=== PATIENT | female | born 1955 | race Caucasian/White ===

== ENCOUNTER 2020-08-29 08:55 | Outpatient (REF) | payer OTHER, SELFPAY | END 2020-08-29 08:56 | disposition home or self-care (01) | LOC: HO.LAB 08:55 | PROVIDERS: Visit Provider Internal Medicine | DX: Z20.828 Contact with and (suspected) exposure to other viral communicable diseases (principal) | CPT/HCPCS: C9803; U0003 ==

== ENCOUNTER 2021-03-09 19:01 | Inpatient (IN) | payer OTHER, SELFPAY ==
--- NOTE | ~2021-03-09 | XR_ITS ---
EXAMINATION: XR CHEST CLINICAL INFORMATION: Shortness of breath. COMPARISON: 12/25/2013 TECHNIQUE: AP portable upright view of the chest FINDINGS: Mild bronchial wall thickening is suspected in the perihilar regions. No consolidation, pneumothorax, or pleural effusion. Cardiac and mediastinal contours are normal. Pulmonary vasculature is unremarkable. Osseous structures are unremarkable. XR/XR chest 1V IMPRESSION: Bronchial wall thickening can be seen with a small airways process such as asthma or atypical/viral infection.
[2021-03-09 19:03] VITALS: BP 176/83; PULSE 62; RESP 18; TEMP 36.8; O2SAT 92; BMI 35.4
--- NOTE | 2021-03-09 21:47 | ED.SOB ---
HPI - SOB/Dyspnea General Chief Complaint: Dyspnea Stated Complaint: diff breathing Time Seen by Provider: 03/09/21 21:47 Source: patient Mode of arrival: ambulatory Limitations: no limitations History of Present Illness HPI Narrative: patient with history of COPD ex-smoker using inhaler at home 2 days ago was cleaning house chemicals started having increased shortness of breath seen at urgent care center yesterday chest x-ray was done which was negative started on prednisone 50 mg daily which she been taking along with inhaler came here as she is not getting better when she came she was wheezing and saturating 89% at room air feels chest tight no history of heart failure no history of coronary artery disease Related Data Home Medications Medication Instructions Recorded Confirmed [id number] 1 puff INHALATION DAILY 03/10/21 03/10/21 [Trelegy Ellipta] lisinopril 1 tab PO DAILY 03/10/21 03/10/21 metoprolol succinate 1 tab PO DAILY 03/10/21 03/10/21 prednisone 1 tab PO DAILY 03/10/21 03/10/21 rosuvastatin 1 tab PO DAILY 03/10/21 03/10/21 Allergies Allergy/AdvReac Type Severity Reaction Status Date / Time Sulfa (Sulfonamide Allergy Intermediate Hives Verified 03/09/21 19:02 Antibiotics) [SULFA (SULFONAMIDE ANTIBIOTICS)] Review of Systems Review of Systems: Constitutional : No Weight loss, No Fever, No Chills ENT/Mouth : No sore throat, No Rhinorrhea Eyes: No Eye Pain, No Swelling Cardiovascular : No Chest Pain, no palpitations Respiratory : No Cough, No Sputum, + shortness of breath Gastrointestinal : no Nausea, No Vomiting, No Diarrhea, No abdominal Pain, no black stools Genitourinary : No Dysuria, No Urinary Frequency Musculoskeletal : No joint pain, No Myalgias, No Joint Swelling Skin : No Skin Lesions, No rash Neuro : No Weakness, No Numbness, No Dizziness, No Headache Psych : No Anxiety/Panic, No Depression Heme/Lymph: No Bruising, No Lymphadenopathy Endocrine : No Polyuria, No Polydipsia All other systems reviewed and are negative PMFSH Past Medical History Medical History COPD (chronic obstructive pulmonary disease) Gall stones HTN (hypertension) Kidney stones Surgical History H/O: hysterectomy Hx of appendectomy Social History Social History Alcohol intake: current Patient Tobacco Use Status: Current everyday Tobacco user Use of substances other than those prescribed or required for medical reasons: No Advance Directives: No Advance Directives Information Provided: Yes Patient : No Physical Exam Vital Signs: Vital Signs: Last Vital Signs Temp 98.2 F 03/10/21 00:00 Pulse 66 03/10/21 04:27 Resp 15 03/10/21 04:27 BP 112/50 L 03/10/21 04:27 Pulse Ox 93 03/10/21 04:27 Oxygen Flow Rate 2 03/09/21 19:03 Body Mass Index 35.4 Appearance: Alert. Oriented X3. in moderate distress with frequent dry cough Eyes: PERRLA, No Nystagmus ENT: Pharynx normal. Oral Mucosa moist Neck: Normal inspection. Neck supple. CVS: Normal heart rate and rhythm. Pulses normal. Respiratory: moderate respiratory distress. Equal air entry bilateral, bilateral wheezing/rhonchi , no rales Abdomen: Soft and nontender. Bowel sounds are present, no mass palpable, no CVA tenderness Skin: Skin warm and dry. Normal skin color. Normal skin turgor. Extremities: No lower extremity edema. No calf tenderness Neuro: Oriented X 3. No motor deficit. No sensory deficit.No cerebellar signs , cranial nerves II-XII intact MDM - SOB/Dyspnea MDM Narrative Medical decision making narrative: patient with COPD with pulse ox dropping to 88% at room air after nebulizing treatment in the ER chest x-ray negative for infiltrate will admit patient for COPD exacerbation patient white counts are elevated secondary to prednisone use patient is not septic and has chronic bronchitis as a cause of COPD Differential Diagnosis Differential diagnosis: Likely acute exacerbation of chronic obstructive airways disease Lab Data Attestation: I reviewed the patient's lab results. Result diagrams: 03/09/21 22:24 03/09/21 22:24 Labs: Lab Results 03/09/21 03/09/21 Range/Units 22:24 22:24 WBC 15.2 H (4.8-10.8) X10*3/uL RBC 5.26 (4.20-5.50) X10*6/uL Hgb 16.3 H (12.0-16.0) g/dl Hct 49.4 H (37-47) % MCV 93.9 (80-98) fL MCH 31.0 (27.0-33.0) pg MCHC 33.0 (31.0-35.0) g/dl RDW 13.2 (11.0-16.0) % Plt Count 247 (160-400) X10*3/uL MPV 12.2 (9.4-12.3) fL Immature Gran % (Auto) 0.3 (0.0-0.4) % Neut % (Auto) 81.3 H (45-73) % Lymph % (Auto) 10.2 L (20-40) % Dillon % (Auto) 8.0 (2-11) % Eos % (Auto) 0.1 (0-4) % Baso % (Auto) 0.1 (0-2) % Lymph # (Auto) 1.6 (1.2-4.9) X10*3/uL Dillon # (Auto) 1.2 (0.1-1.2) X10*3/uL Eos # (Auto) 0.0 (0.0-0.4) X10*3/uL Baso # (Auto) 0.0 (0.0-0.2) X10*3/uL Abs Immat Gran (auto) 0.05 H (0.00-0.03) X10*3/uL Absolute Neuts (auto) 12.3 H (2.0-8.3) X10*3/uL Absolute Nucleated RBC 0.000 (0.0-0.012) X10*3/uL Nucleated RBC % (auto) 0.0 (0.0-0.2) /100WBC Sodium 144 (135-145) mmol/L Potassium 4.5 (3.3-5.1) mmol/L Chloride 108 (96-108) mmol/L Carbon Dioxide 27 (22-29) mmol/L Anion Gap 14 (12-20) BUN 10 (9-16) mg/dL Creatinine 0.84 (0.5-1.4) mg/dL Estim Creat Clear Calc 73.3 Estimated GFR > 60 Random Glucose 110 (60-115) mg/dL Calcium 10.0 (8.4-10.2) mg/dL Discharge Plan Discharge Clinical Impression: Acute exacerbation of chronic obstructive airways disease Patient Disposition: Admitted As Inpatient
[2021-03-09 21:54] VITALS: BP 135/62; PULSE 57; RESP 18; O2SAT 93
[2021-03-09] MEDS: dexAMETHasone sod phosphate 10 MG/ML VIAL IVPUSH (22:24)
[2021-03-09 22:29] LABS: Basophils Percent Auto 0.1 % (0-2); Eosinophils Percent Auto 0.1 % (0-4); Hematocrit 49.4 % (37-47); Hemoglobin 16.3 g/dl (12.0-16.0); Imm Gran Abs Auto 0.05 X10*3/uL (0.00-0.03); Imm Gran Pct Auto 0.3 % (0.0-0.4); Lymphocytes Absolute Auto 1.6 X10*3/uL (1.2-4.9); Lymphocytes Percent Auto 10.2 % (20-40); MANUAL DIFF FLAG NO; Mean Corpuscular Volume 93.9 fL (80-98); Mean Platelet Volume 12.2 fL (9.4-12.3); Monocytes Absolute Auto 1.2 X10*3/uL (0.1-1.2); Neutrophils Absolute Auto 12.3 X10*3/uL (2.0-8.3); Neutrophils Percent Auto 81.3 % (45-73); Platelet Count 247 X10*3/uL (160-400); Red Blood Count 5.26 X10*6/uL (4.20-5.50); Red Cell Distribution Width 13.2 % (11.0-16.0); White Blood Count 15.2 X10*3/uL (4.8-10.8)
[2021-03-09 22:51] LABS: Anion Gap 14 (12-20); Blood Urea Nitrogen 10 mg/dL (9-16); Carbon Dioxide 27 mmol/L (22-29); Chloride 108 mmol/L (96-108); Creatinine Clr Calc Pharmacy 73.3; Estimated Glomerular Filt Rate > 60; Glucose Random 110 mg/dL (60-115); Potassium 4.5 mmol/L (3.3-5.1); Sodium 144 mmol/L (135-145)
[2021-03-09] MEDS: Albuterol Sulfate (0.083%) 2.5 MG/3 ML VIAL.NEB 5 MG INHALE (23:07)
[2021-03-09] MEDS: Albuterol/Iprat 2.5/0.5MG 3 ML AMPUL.NEB INHALE (23:07)
[2021-03-09 23:10] VITALS: PULSE 52; O2SAT 94
[2021-03-10] VITALS (14 sets, daily range): BP systolic 109–155; BP diastolic 45–74; PULSE 56–77; RESP 14–20; TEMP 35.8–36.8; O2SAT 93–98
[2021-03-10] MEDS: Acetaminophen 325 MG TABLET 650 MG PO (00:59)
[2021-03-10] MEDS: Acetaminophen 325 MG TABLET PO (01:00)
[2021-03-10 03:15] LABS: COVID-19 Test Negative (Negative)
--- NOTE | 2021-03-10 05:02 | P.HPHOSP_ITS ---
History of Present Illness Date of Service: 03/10/21 Chief Complaint: shortness of breath this is a 65-year-old female with past medical history a stone who presents to the hospital with complaints of shortness of breath. Patient reports that her symptoms started about 2 days ago, has a cough, sputum production, no fever no chills, she has chest soreness from coughing, denies any fever or chills, denies abdominal pain nausea vomiting, diarrhea or constipation. No urinary symptoms and no lower extremity edema. No headache or change in vision. No palpitations. on arrival to the ED patient was noted to be 88-89% on room air, currently on 2 L of oxygen satting 93% Labs are significant for WBC count of 15.4, hemoglobin 16.3, otherwise unremarkable. COVID-19 negative Chest x-ray showed bronchial wall thickening can be seen with asthma airway process such as asthma or atypical/viral infection review of systems other in eyes negative, past medical history as below in confirmed with patient Review of Systems Review of Systems: Yes all other systems are reviewed and are negative [facility] Medical History COPD (chronic obstructive pulmonary disease) Gall stones HTN (hypertension) Kidney stones Surgical History H/O: hysterectomy Hx of appendectomy Social History Alcohol intake: current Patient Tobacco Use Status: Current everyday Tobacco user Use of substances other than those prescribed or required for medical reasons: No Advance Directives: No Advance Directives Information Provided: Yes Patient : No Meds Allergies Allergy/AdvReac Type Severity Reaction Status Date / Time Sulfa (Sulfonamide Allergy Intermediate Hives Verified 03/09/21 19:02 Antibiotics) [SULFA (SULFONAMIDE ANTIBIOTICS)] Active Medications: Current Medications Generic Name Dose Route Start Last Admin Trade Name Freq PRN Reason Stop Dose Admin Acetaminophen 650 mg 03/10/21 04:27 Acetaminophen 325 Mg Tablet PO Q6H PRN Pain, Mild (Pain Scale 1-3) Albuterol/Ipratropium 3 ml 03/10/21 08:00 Albuterol/Iprat 2.5/0.5mg 3 Ml Ampul.Neb INHALE RQ4H WHILE AWAKE PAULINO Albuterol/Ipratropium 3 ml 03/10/21 04:27 Albuterol/Iprat 2.5/0.5mg 3 Ml Ampul.Neb INHALE RQ4H PRN Shortness of Breath/Wheezing Docusate Sodium 100 mg 03/10/21 04:27 Docusate Sodium 100 Mg Capsule PO DAILY PRN Constipation Enoxaparin Sodium 40 mg 03/10/21 06:00 Enoxaparin Sodium 40 Mg/0.4 Ml Syringe SUBCUT Q24H [facility] Ceftriaxone Sodium 1 gm/ 50 mls @ 100 mls/hr 03/10/21 06:00 Sodium Chloride IV Q24H [facility] Azithromycin 500 mg/ Sodium 250 mls @ 125 mls/hr 03/10/21 07:00 Chloride IV Q24H [facility] Methylprednisolone Sodium Succinate 40 mg 03/10/21 09:00 Methylprednisolone Sod Succ 40 Mg/Ml Vial IVPUSH Q12H [facility] Ondansetron HCl 4 mg 03/10/21 04:27 Ondansetron Hcl 4 Mg/2 Ml Vial IVPUSH Q8H PRN Nausea and Vomiting Sodium Chloride 3 ml 03/10/21 08:00 0.9 % Sodium Chloride Flush 3 Ml Syringe IVFLUSH QSHIFT [facility] Home Medications Medication Instructions Recorded Confirmed Last Taken Type whothojjbwu-mjcjiwftx-uliofbfs 1 puff INHALATION DAILY 03/10/21 03/10/21 03/10/21 History [Trelegy Ellipta] lisinopril 1 tab PO DAILY 03/10/21 03/10/21 03/10/21 History metoprolol succinate 1 tab PO DAILY 03/10/21 03/10/21 03/10/21 History prednisone 1 tab PO DAILY 03/10/21 03/10/21 03/10/21 History rosuvastatin 1 tab PO DAILY 03/10/21 03/10/21 03/10/21 History Physical Exam Vital Signs and Narrative: Vital Signs: Last Vital Signs Temp 98.2 F 03/10/21 00:00 Pulse 66 03/10/21 04:27 Resp 15 03/10/21 04:27 BP 112/50 L 03/10/21 04:27 Pulse Ox 93 03/10/21 04:27 Oxygen Flow Rate 2 03/09/21 19:03 Body Mass Index 35.4 Const: General: cooperative and no acute distress Orientation/consciousness: patient oriented x3 Eyes: General: appearance normal, both eyes and all related structures Resp: Other: audible wheezing Effort & Inspection: normal respiratory effort and able to speak in complete sentences Cardio: Rate: regular rate Rhythm: regular rhythm GI: Palpation (GI): Soft to palpation Auscultation: normal bowel sounds Skin: General skin exam: no rashes or lesions noted Neuro: General: patient oriented x3 Cognition (Neuro): normal cognition Extrem: General: Yes normal to inspection and Yes no pedal edema Results Labs CBC and Chem 7: 03/09/21 22:24 03/09/21 22:24 Labs: Laboratory Results - last 24 hr 03/09/21 03/09/21 03/10/21 22:24 22:24 02:46 MCV 93.9 MCH 31.0 MCHC 33.0 RDW 13.2 Plt Count 247 MPV 12.2 Immature Gran % (Auto) 0.3 Neut % (Auto) 81.3 H Lymph % (Auto) 10.2 L Owsley % (Auto) 8.0 Eos % (Auto) 0.1 Baso % (Auto) 0.1 Lymph # (Auto) 1.6 [place] # (Auto) 1.2 Eos # (Auto) 0.0 Baso # (Auto) 0.0 Abs Immat Gran (auto) 0.05 H Absolute Neuts (auto) 12.3 H Absolute Nucleated RBC 0.000 Nucleated RBC % (auto) 0.0 Anion Gap 14 Estim Creat Clear Calc 73.3 Estimated GFR > 60 Random Glucose 110 Calcium 10.0 COVID-19 ([facility]NARD) Negative COVID-19 Clin Com See Note Imaging Radiologist's Impressions: Impressions Chest X-Ray 03/10/21 01:01 IMPRESSION: Bronchial wall thickening can be seen with a small airways process such as asthma or atypical/viral infection. Assessment and Plan (1) Acute exacerbation of chronic obstructive airways disease: Status: Acute (2) Acute respiratory failure with hypoxia: Status: Acute (3) Shortness of breath: Status: Acute (4) Pneumonia: Status: Acute this is a 65-year-old female with past medical history of COPD who presents to the hospital shortness of breath cough and sputum production found to be hypoxic # acute hypoxic respiratory failure - most likely secondary to COPD, as well as likely pneumonia, less likely to be secondary to CHF exacerbation - has cough, sputum production, as well as dyspnea, has slightly elevated WBC count, afebrile - chest x-ray shows possible airway disease - will treat her with IV steroids, antibiotics, breathing treatments - titrate oxygen off as tolerated - order BNP # acute CHF exacerbation - dyspnea, cough, sputum production - history of COPD - hypoxic - at this time will treat with IV steroids 40 of Solu-Medrol IV b.i.d., antibiotics, DuoNeb p.r.n. as well as scheduled # pneumonia - patient has leukocytosis, as well as evidence of possible atypical pneumonia on chest x-ray - will treat her with ceftriaxone and azithromycin - follow cultures # hypertension - continue lisinopril, metoprolol # hyperlipidemia - continue statin DVT prophylaxis : Lovenox Quality Stroke Does the patient have a stroke diagnosis?: No VTE Prior VTE?: No VTE Risk Level:: Medical - moderate - high VTE Device Contraindication: Treatment Not Indicated VTE Drug Contraindication: N/A - Med Ordered
[2021-03-10] MEDS: cefTRIAXone sodium 1 GM in 0.9 % Sodium Chloride 50 ML IV (06:17)
[2021-03-10] MEDS: Enoxaparin Sodium 40 MG/0.4 ML SYRINGE SUBCUT (06:23)
[2021-03-10 06:44] LABS: B Type Natriuretic Peptide 66 pg/mL (<100)
--- NOTE | 2021-03-10 07:00 | PC.NURSE ---
Patient is sittng up in bed looking around. Bilateral breath sounds are equal but wheezing is noted throughout. Pt denies any pain and states she feels better than when she arrived.
[2021-03-10] MEDS: Azithromycin 500 MG in 0.9 % Sodium Chloride 250 ML 125 MG IV (07:55)
[2021-03-10] MEDS: 0.9 % Sodium Chloride Flush 3 ML SYRINGE IVFLUSH ×2 (08:00→17:47)
--- NOTE | 2021-03-10 08:02 | PC.NURSE ---
Patient finished eating breakfast. Pt is alert and oriented. Pt states she is not in any pain.
[2021-03-10] MEDS: Albuterol/Iprat 2.5/0.5MG 3 ML AMPUL.NEB INHALE ×4 (08:15→19:50)
--- NOTE | 2021-03-10 09:53 | PC.NURSE ---
Patient ambulatory to the bathroom and back unassisted. Pt continues to have expiratory wheezing but states she is feeling much better. No acute distress at this time
[2021-03-10] MEDS: methylPREDNISolone Sod Succ 40 MG/ML VIAL IVPUSH ×2 (10:12→21:18)
--- NOTE | 2021-03-10 11:07 | MHC.CM.PN ---
Met with patient and Erick in regards to discharge planning. Patient lives with her , ambulates independently and had no services prior to coming to the hospital. No services anticipated to be necessary because [facility] is not homebound. PCP verified. Patient has a HCP at home. Patient received 2nd Pfizer vaccine on 11/13. Erick will transport patient home when medically stable. Continue to monitor for d/c needs.
--- NOTE | 2021-03-10 15:00 | PC.NURSE ---
Pt has ambulated to the bathroom and back unassisted. Pt continues to have intermittent coughing. Pt denies pain but states her chest is sore from coughing. Pt remains alert and oriented
--- NOTE | 2021-03-10 17:20 | PC.NURSE ---
Report given to LAURI Scott. Pt to go to room 362
[2021-03-11] MEDS: 0.9 % Sodium Chloride Flush 3 ML SYRINGE IVFLUSH ×2 (00:04→08:50)
[2021-03-11 03:37] VITALS: BP 136/70; PULSE 57; RESP 18; TEMP 36.4; O2SAT 93
[2021-03-11] MEDS: cefTRIAXone sodium 1 GM in 0.9 % Sodium Chloride 50 ML IV (05:47)
[2021-03-11] MEDS: Albuterol/Iprat 2.5/0.5MG 3 ML AMPUL.NEB INHALE (06:13)
[2021-03-11 06:18] VITALS: PULSE 57; O2SAT 93
[2021-03-11] MEDS: Azithromycin 500 MG in 0.9 % Sodium Chloride 250 ML 125 MG IV (06:37)
--- NOTE | 2021-03-11 06:40 | PC.NURSE ---
PATIENT DECLINED HER AM LOVENOX, EXPLAINED MEDICINE USAGE, HOWEVER, PATIENT NOTED TO BE OUT OF BED WALKING FREQUENTLY IN HER ROOM AND TO THE BATHROOM. SHE IS LOW RISK AND INDEPENDENT WITH STEADY GAIT. HOSPITALIST ON [facility] WAS MADE AWARE VIA [employer] AND SHE ACKNOWLEDGED MESSAGE AND WROTE THAT'S OKAY IF SHE IS UP AND ABOUT
[2021-03-11 06:53] LABS: MANUAL DIFF FLAG NO
[2021-03-11 07:03] LABS: Basophils Percent Auto 0.1 % (0-2); Hematocrit 46.3 % (37-47); Hemoglobin 15.2 g/dl (12.0-16.0); Imm Gran Abs Auto 0.07 X10*3/uL (0.00-0.03); Imm Gran Pct Auto 0.5 % (0.0-0.4); Lymphocytes Percent Auto 7.1 % (20-40); Mean Corpuscular HGB Conc 32.8 g/dl (31.0-35.0); Mean Corpuscular Hemoglobin 31.3 pg (27.0-33.0); Mean Corpuscular Volume 95.3 fL (80-98); Mean Platelet Volume 12.7 fL (9.4-12.3); Monocytes Absolute Auto 0.7 X10*3/uL (0.1-1.2); Monocytes Percent Auto 4.6 % (2-11); Neutrophils Absolute Auto 12.3 X10*3/uL (2.0-8.3); Neutrophils Percent Auto 87.7 % (45-73); Platelet Count 247 X10*3/uL (160-400); Red Blood Count 4.86 X10*6/uL (4.20-5.50); Red Cell Distribution Width 13.3 % (11.0-16.0)
[2021-03-11 07:28] VITALS: BP 109/58; PULSE 87; RESP 18; TEMP 36.5; O2SAT 92
[2021-03-11 07:38] LABS: Anion Gap 14 (12-20); Blood Urea Nitrogen 18 mg/dL (9-16); Calcium 9.8 mg/dL (8.4-10.2); Carbon Dioxide 26 mmol/L (22-29); Chloride 107 mmol/L (96-108); Creatinine Clr Calc Pharmacy 63.4; Estimated Glomerular Filt Rate 58; Glucose Random 144 mg/dL (60-115); Potassium 4.9 mmol/L (3.3-5.1); Sodium 142 mmol/L (135-145)
[2021-03-11] MEDS: methylPREDNISolone Sod Succ 40 MG/ML VIAL IVPUSH (08:48)
--- NOTE | 2021-03-11 11:31 | P.DS_ITS ---
DS: Providers Provider Date of Service: 03/11/21 Date of admission: 03/10/21 01:25 Primary care physician: Patrick Ayoub MD DS: Diagnosis Discharge Diagnosis (1) Acute exacerbation of chronic obstructive airways disease: Status: Acute (2) Acute respiratory failure with hypoxia: Status: Acute (3) Shortness of breath: Status: Acute (4) Pneumonia: Status: Acute DS: Medications Discharge Medications Home Medications: Home Medications Medication Instructions Recorded Confirmed Trelegy Ellipta 1 puff INHALATION DAILY 03/10/21 03/10/21 lisinopril 1 tab PO DAILY 03/10/21 03/10/21 metoprolol succinate 1 tab PO DAILY 03/10/21 03/10/21 rosuvastatin 1 tab PO DAILY 03/10/21 03/10/21 Previous Rx's Medication Instructions Recorded albuterol sulfate 2 puff PO Q6H PRN 30 Days #0 g 03/11/21 azithromycin 500 mg PO DAILY #5 tab 03/11/21 cefuroxime axetil 500 mg PO BID #10 tab 03/11/21 prednisone 40 mg PO DAILY 3 Days #6 tab 03/11/21 DS: Summary Hospital Course Hospital Course: Admission note HPI this is a 65-year-old female with past medical history a stone who presents to the hospital with complaints of shortness of breath. Patient reports that her symptoms started about 2 days ago, has a cough, sputum production, no fever no chills, she has chest soreness from coughing, denies any fever or chills, denies abdominal pain nausea vomiting, diarrhea or constipation. No urinary symptoms and no lower extremity edema. No headache or change in vision. No palpitations. on arrival to the ED patient was noted to be 88-89% on room air, currently on 2 L of oxygen satting 93% Labs are significant for WBC count of 15.4, hemoglobin 16.3, otherwise unremarkable. COVID-19 negative Chest x-ray showed bronchial wall thickening can be seen with asthma airway pro cess such as asthma or atypical/viral infection review of systems other in eyes negative, past medical history as below in confirmed with patient Hospital course Patient was admitted to the hospital for treatment of acute hypoxic respiratory failure for picture of pneumonia and COPD exacerbation. Her symptoms seems to be aggravated by using chemicals detergent at home and mixing them Chest x-ray showed possible infiltrate Associated with leukocytosis and cough. Treated with IV steroids, IV antibiotics and bronchodilator nebulizers with good response over the course of hospital stay as the patient was taken off the oxygen was able to ambulate freely on room air. To be discharged home on steroids, antibiotics of azithromycin and Ceftin. Time Spent with Patient Time attestation: Total time spent providing and/or coordinating discharge services: Discharge coordination time: Greater than 30 minutes Quality: Stroke Does the patient have a stroke diagnosis?: No Physical Exam Vital Signs: Vital Signs: Last Vital Signs Temp 97.7 F 03/11/21 07:28 Pulse 87 03/11/21 07:28 Resp 18 03/11/21 07:28 BP 109/58 L 03/11/21 07:28 Pulse Ox 92 03/11/21 07:28 Oxygen Flow Rate 2 03/09/21 19:03 Body Mass Index 35.4 Const: Other: Constitutional : Alert, oriented, not in distress Neck : Normal inspection, Supple Cardiovascular : RRR, S1 S2, no lower extremity edema Respiratory : Failure bilateral air entry, no crackles, fine scattered wheezes. Gastrointestinal: soft, lax, Normal bowel sounds, Non tender Skin : Warm/Dry, No rash Neurological : Alert & oriented x3, No focal deficit DS: Data Data Completed and Pending Labs on day of discharge: Laboratory Results - last 24 hr 03/11/21 03/11/21 06:20 06:20 WBC 14.0 H RBC 4.86 Hgb 15.2 Hct 46.3 MCV 95.3 MCH 31.3 MCHC 32.8 RDW 13.3 Plt Count 247 MPV 12.7 H Immature Gran % (Auto) 0.5 H Neut % (Auto) 87.7 H Lymph % (Auto) 7.1 L Harper % (Auto) 4.6 Eos % (Auto) 0.0 Baso % (Auto) 0.1 Lymph # (Auto) 1.0 L Harper # (Auto) 0.7 Eos # (Auto) 0.0 Baso # (Auto) 0.0 Abs Immat Gran (auto) 0.07 H Absolute Neuts (auto) 12.3 H Absolute Nucleated RBC 0.000 Nucleated RBC % (auto) 0.0 Sodium 142 Potassium 4.9 Chloride 107 Carbon Dioxide 26 Anion Gap 14 BUN 18 H D Creatinine 0.97 Estim Creat Clear Calc 63.4 Estimated GFR 58 Random Glucose 144 H Calcium 9.8 Preliminary micro results at discharge 03/10/21 05:50 Blood Culture - Preliminary Blood - Venous No growth after 24 hours. 03/10/21 05:46 Blood Culture - Preliminary Blood - Venous No growth after 24 hours. Discharge Plan Discharge Patient Disposition: Home, Self-Care Discharge Diagnosis: COPD exacerbation Pneumonia Referrals: Patrick Ayoub MD [Primary Care Provider] - 1 Week Discharge Medications: New azithromycin 500 mg tablet 500 mg PO DAILY Qty: 5 RF: 0 cefuroxime axetil 500 mg tablet 500 mg PO BID Qty: 10 RF: 0 prednisone 20 mg tablet 40 mg PO DAILY 3 Days Qty: 6 RF: 0 Continued lisinopril 20 mg tablet 1 tab PO DAILY RF: 0 Trelegy Ellipta 100-62.5-25 mcg blister with device 1 puff inhalation DAILY RF: 0 metoprolol succinate 100 mg tablet extended release 24 hr 1 tab PO DAILY RF: 0 rosuvastatin 5 mg tablet 1 tab PO DAILY RF: 0 albuterol sulfate 90 mcg/actuation HFA aerosol inhaler 2 puff PO Q6H PRN (Reason: wheezing) 30 Days Qty: 0 RF: 0 Discontinued prednisone 50 mg tablet 1 tab PO DAILY RF: 0 Discharge Orders: Discharge Order (Routine); Ordered 03/11/21 Ordered By: Lesli Caruso Diet: advance to usual diet Activity on Discharge: As tolerated Stand Alone Forms: Patient Portal Discharge page Care Plan Goals: Read below Health Concerns: Read below Plan of Treatment: you were admitted to the hospital for treatment of lung infection in COPD exacerbation. Responded well to antibiotic and nebulizers. Assessment: Continue Ceftin and azithromycin for 5 more days Continue prednisone as prescribed Discharge Date/Time: 03/11/21 10:46
--- NOTE | 2021-03-11 13:57 | MHC.CM.PN ---
nurse care management not electronic medical record reviewed along with case discussed with staff nurse , met with patient 'paln for discharge today discharge pln home no services 'transportation pcp veronica lopez
== END 2021-03-11 10:46 | disposition home or self-care (01) | DRG 139 ==
LOC: HO.ED 03-10 01:27 → HO.EDOVER 03-10 03:49 → HO.S3 03-10 16:36
PROVIDERS: Admitting Provider Internal Medicine; Emergency Provider Internal Medicine; PCP Family Medicine; Visit Provider Student in an Organized Health Care Education/Training Program
DX: J18.9 Pneumonia, unspecified organism (principal); I11.0 Hypertensive heart disease with heart failure; I50.9 Heart failure, unspecified; J44.0 Chronic obstructive pulmonary disease with (acute) lower respiratory infection; J44.1 Chronic obstructive pulmonary disease with (acute) exacerbation; E78.5 Hyperlipidemia, unspecified; F17.210 Nicotine dependence, cigarettes, uncomplicated; Z71.6 Tobacco abuse counseling; Z20.822 Contact with and (suspected) exposure to COVID-19; Z79.899 Other long term (current) drug therapy
CPT/HCPCS: 36415; 71045; 80048; 83880; 85025; 87040; 87635; 94640; 94644; 99285; J0456; J0696; J1100; J1650; J2920